=== PATIENT | male | born 1955 | race Hispanic/Latino ===

== ENCOUNTER → 2017-08-20 | Outpatient (CLI) | payer OTHER ==
[~2017-08-20] MED LIST: ASPI-1197 PO; CARV3.1262 PO; CLOP75TA32 PO; FURO20TA6 PO; Isosorbide Mono 30MG Tab Sr PO; LISI2.5T2 PO; LOSA25TA21 PO; REGADENOSON 0.4 MG/5 ML PF SYG IVP SCH; ROSU40 PO; SPIR25TA PO
== END | disposition home or self-care (01) ==
LOC: SHCH 09:47
PROVIDERS: ATTEND Internal Medicine Cardiovascular Disease
DX: I25.10 Atherosclerotic heart disease of native coronary artery without angina pectoris (principal); R06.00 Dyspnea, unspecified
CPT/HCPCS: 78452; 93017; 96374; A9500 ×2; J2785

== ENCOUNTER 2017-09-11 12:10 | Observation (INO) | payer OTHER ==
[~2017-09-11] VITALS: Ht 175.3 cm; Wt 77.8 kg
[~2017-09-11 12:10] MED LIST changes: -LOSA25TA21 PO; -REGADENOSON 0.4 MG/5 ML PF SYG IVP SCH
[2017-09-11] MEDS ORDERED: ASPIRIN 325 MG TABLET ONE (12:29)
[2017-09-11 12:42] LABS: BASOPHILS % (AUTO) 0.7 % (0.0-5.0); EOSINOPHILS % (AUTO) 3.7 % (0.0-8.0); HEMATOCRIT 41.6 % (42-54); LYMPHOCYTES % (AUTO) 25.6 % (21.0-51.0); MEAN CORPUSCULAR HEMOGLOBIN 29.2 pg (27.0-33.0); MEAN CORPUSCULAR HGB CONC 33.6 g/dL (32.0-36.0); MEAN CORPUSCULAR VOLUME 86.8 fL (79-99); MONOCYTES % (AUTO) 10.3 % (3.0-13.0); NEUTROPHILS % (AUTO) 59.7 % (40.0-77.0); NUCLEATED RED BLOOD CELLS 0.1 % (0.0-0.19); PLATELET COUNT (AUTO) 209 K/uL (130-400); RED BLOOD CELL COUNT(AUTO) 4.79 MIL/uL (4.50-6.20); RED CELL DISTRIBUTION WIDTH 14.5 % (11.0-15.5); WHITE BLOOD COUNT (AUTO) 5.5 K/uL (4.8-10.8)
[2017-09-11 13:05] LABS: B-TYPE NATRIURETIC PEPTIDE 87 pg/mL (0-100)
[2017-09-11 13:06] LABS: INR 0.96 (0.85-1.15); PARTIAL THROMBOPLASTIN TIME 27.1 SEC (26.3-35.5); PROTHROMBIN TIME 10.1 SEC (9.6-11.6)
[2017-09-11 14:32] LABS: CREATININE 0.9 mg/dL (0.5-1.5); POTASSIUM 3.6 mmol/L (3.5-5.1)
[2017-09-11 14:39] LABS: ALBUMIN 4.3 g/dL (3.5-5.0); BILIRUBIN,TOTAL 0.7 mg/dL (0.2-1.0); TOTAL PROTEIN, SERUM 7.3 g/dL (6.0-8.3)
[2017-09-11] MEDS ORDERED: NITROGLYCERIN 1GM/1 INCH PACKET TD ONE (16:15)
[2017-09-11 17:00] VITALS: BP 132/76
[2017-09-11] MEDS ORDERED: LOSA25TA21 PO (17:28)
[2017-09-11 17:48] LABS: CREATINE KINASE MB 1.5 ng/mL (0.5-3.6); CREATINE KINASE, TOTAL 150 U/L (21-232); MYOGLOBIN 44 ng/mL (10-92); TROPONIN I < 0.04 ng/mL (0.00-0.06)
[2017-09-11] MEDS: NITROGLYCERIN 1GM/1 INCH PACKET TD SCH ×2 (18:01→23:52)
[2017-09-11 21:43] VITALS: BP 96/59
[2017-09-11 23:51] LABS: CREATINE KINASE MB 1.3 ng/mL (0.5-3.6); CREATINE KINASE, TOTAL 120 U/L (21-232); MYOGLOBIN 43 ng/mL (10-92); TROPONIN I < 0.04 ng/mL (0.00-0.06)
[2017-09-12] VITALS (7 sets, daily range): BP systolic 96–125; BP diastolic 57–81
[2017-09-12 05:29] LABS: HEMATOCRIT 38.6 % (42-54); MEAN CORPUSCULAR HEMOGLOBIN 30.5 pg (27.0-33.0); MEAN CORPUSCULAR VOLUME 87.2 fL (79-99); NUCLEATED RED BLOOD CELLS 0.1 % (0.0-0.19); PLATELET COUNT (AUTO) 178 K/uL (130-400); RED BLOOD CELL COUNT(AUTO) 4.42 MIL/uL (4.50-6.20); RED CELL DISTRIBUTION WIDTH 14.5 % (11.0-15.5); WHITE BLOOD COUNT (AUTO) 5.4 K/uL (4.8-10.8)
[2017-09-12 06:01] LABS: CARBON DIOXIDE 27 mmol/L (21-32); CHLORIDE 103 mmol/L (101-111); CREATINE KINASE, TOTAL 98 U/L (21-232); CREATININE 0.9 mg/dL (0.5-1.5); GLOMERULAR FILTR. RATE CALC 91 mL/min (>60); GLUCOSE,RANDOM 92 mg/dL (70-105); MYOGLOBIN 51 ng/mL (10-92); POTASSIUM 3.7 mmol/L (3.5-5.1); SODIUM SERUM 138 mmol/L (136-145); TROPONIN I < 0.04 ng/mL (0.00-0.06); UREA NITROGEN, BLOOD 9 mg/dL (7-18)
[2017-09-12] MEDS: PANTOPRAZOLE SODIUM 40 MG TABLET.DR PO SCH (07:37)
[2017-09-12] MEDS: ASPIRIN 325MG EC TAB 325 MG TABLET.DR PO SCH (08:57)
[2017-09-12] MEDS: NITROGLYCERIN 1GM/1 INCH PACKET TD SCH ×2 (08:58→16:11)
[2017-09-13 00:29] VITALS: BP 108/60
[2017-09-13] MEDS: NITROGLYCERIN 1GM/1 INCH PACKET TD SCH ×2 (00:34→08:27)
[2017-09-13 03:50] VITALS: BP 109/74
[2017-09-13 07:44] VITALS: BP 116/67
[2017-09-13] MEDS: PANTOPRAZOLE SODIUM 40 MG TABLET.DR PO SCH (07:45)
[2017-09-13] MEDS: ASPIRIN 325MG EC TAB 325 MG TABLET.DR PO SCH (08:21)
[2017-09-13] MEDS ORDERED: NITROGLYCERIN 1GM/1 INCH PACKET TD SCH (09:24)
[2017-09-13 12:00] VITALS: BP 111/76
[2017-09-13 16:00] VITALS: BP 119/66
[2017-09-13] MEDS ORDERED: ATORVASTATIN CALCIUM 20 MG TABLET PO SCH (21:00)
[2017-09-13] MEDS ORDERED: CARVEDILOL 3.125 MG TABLET PO SCH (21:00)
[2017-09-13] MEDS ORDERED: LOSARTAN 50 MG TABLET PO SCH (21:00)
[2017-09-14] MEDS ORDERED: CLOPIDOGREL BISULFATE 75 MG TAB PO SCH (09:00)
== END 2017-09-13 19:10 | disposition home or self-care (01) ==
LOC: EDH 12:10 → 4BH 15:25
PROVIDERS: ADMIT Family Medicine; ATTEND Family Medicine
DX: I25.110 Atherosclerotic heart disease of native coronary artery with unstable angina pectoris (principal); I11.0 Hypertensive heart disease with heart failure; I50.22 Chronic systolic (congestive) heart failure; E78.5 Hyperlipidemia, unspecified; I21.9 Acute myocardial infarction, unspecified; I25.5 Ischemic cardiomyopathy; K21.9 Gastro-esophageal reflux disease without esophagitis; I25.2 Old myocardial infarction; Z87.891 Personal history of nicotine dependence; Z95.5 Presence of coronary angioplasty implant and graft
CPT/HCPCS: 36415 ×2; 71045; 80048; 80053; 82550 ×4; 82553 ×3; 83874 ×3; 83880; 84484 ×4; 85025; 85027; 85610; 85730; 93005; 99285; G0378 ×52

== ENCOUNTER 2018-04-22 20:08 | Inpatient (IN) | payer OTHER ==
[~2018-04-22] VITALS: Ht 175.3 cm; Wt 71.8 kg
[~2018-04-22 20:08] MED LIST changes: -FURO20TA6 PO; -Isosorbide Mono 30MG Tab Sr PO; -LISI2.5T2 PO; +LOSA25TA16 PO; -SPIR25TA PO
[2018-04-22] MEDS ORDERED: ASPIRIN 325 MG TABLET ONE (22:53)
[2018-04-22 23:25] LABS: BILIRUBIN,URINE Negative (NEGATIVE); COLOR,URINE Yellow (YELLOW); GLUCOSE, URINE (UA) Negative (NEGATIVE); KETONES,URINE 40 mg/dL (NEGATIVE); LEUKOCYTE ESTERASE ,URINE Negative (NEGATIVE); NITRATE,URINE Negative (NEGATIVE); OCCULT BLOOD,URINE Negative (NEGATIVE); PROTEIN,URINE Negative (NEGATIVE)
[2018-04-22 23:35] LABS: APPEARANCE,URINE CLEAR (CLEAR)
[2018-04-22 23:38] LABS: BASOPHILS % (AUTO) 0.4 % (0.0-5.0); EOSINOPHILS % (AUTO) 0.7 % (0.0-8.0); HEMATOCRIT 39.2 % (42-54); LYMPHOCYTES % (AUTO) 17.6 % (21.0-51.0); MEAN CORPUSCULAR HEMOGLOBIN 30.3 pg (27.0-33.0); MEAN CORPUSCULAR HGB CONC 34.2 g/dL (32.0-36.0); MEAN CORPUSCULAR VOLUME 88.8 fL (79-99); MONOCYTES % (AUTO) 14.3 % (3.0-13.0); PLATELET COUNT (AUTO) 179 K/uL (130-400); RED BLOOD CELL COUNT(AUTO) 4.42 MIL/uL (4.50-6.20); RED CELL DISTRIBUTION WIDTH 12.8 % (11.0-15.5); WHITE BLOOD COUNT (AUTO) 7.9 K/uL (4.8-10.8)
[2018-04-22 23:46] LABS: CREATININE 0.9 mg/dL (0.5-1.5); POTASSIUM 4.3 mmol/L (3.5-5.1)
[2018-04-22 23:50] LABS: ALBUMIN 3.8 g/dL (3.5-5.0); BILIRUBIN,TOTAL 1.5 mg/dL (0.2-1.0); TOTAL PROTEIN, SERUM 7.4 g/dL (6.0-8.3)
[2018-04-23 00:18] LABS: INR 1.03 (0.85-1.15); PARTIAL THROMBOPLASTIN TIME 32.2 SEC (26.3-35.5); PROTHROMBIN TIME 10.8 SEC (9.6-11.6)
[2018-04-23] MEDS ORDERED: NITROGLYCERIN 1GM/1 INCH PACKET TD PRN (15:45)
[2018-04-23] MEDS ORDERED: SODIUM CHLORIDE 0.9% 10 ML VIAL IVP PRN (15:45)
[2018-04-23 16:00] VITALS: BP 122/79
[2018-04-23] MEDS ORDERED: CARV6.2579 PO (17:16)
[2018-04-23] MEDS ORDERED: ACETAMINOPHEN 325 MG TAB ONE (17:19)
[2018-04-23 19:20] VITALS: BP 102/66
[2018-04-23] MEDS: ASPIRIN 325 MG TABLET PO SCH (20:56)
[2018-04-23 23:20] VITALS: BP 111/65
[2018-04-24] VITALS (11 sets, daily range): BP systolic 91–142; BP diastolic 61–85
[2018-04-24] MEDS: ACETAMINOPHEN 325 MG TAB PO PRN ×3 (00:26→20:53)
[2018-04-24 04:32] LABS: HEMATOCRIT 39.3 % (42-54); MEAN CORPUSCULAR HEMOGLOBIN 28.9 pg (27.0-33.0); MEAN CORPUSCULAR VOLUME 87.7 fL (79-99); NUCLEATED RED BLOOD CELLS 0.1 % (0.0-0.19); PLATELET COUNT (AUTO) 175 K/uL (130-400); RED BLOOD CELL COUNT(AUTO) 4.48 MIL/uL (4.50-6.20); RED CELL DISTRIBUTION WIDTH 12.9 % (11.0-15.5); WHITE BLOOD COUNT (AUTO) 7.1 K/uL (4.8-10.8)
[2018-04-24 04:47] LABS: CREATININE 0.8 mg/dL (0.5-1.5); POTASSIUM 3.7 mmol/L (3.5-5.1)
[2018-04-24] MEDS: ASPIRIN 325 MG TABLET PO SCH (08:29)
[2018-04-24] MEDS: IPRATROPIUM/ALBUTEROL SULFATE 3 ML SOLUTION IH SCH ×2 (14:55→18:40)
[2018-04-24] MEDS ORDERED: FUROSEMIDE 10 MG/ML 2ML VIAL IV SCH (16:30)
[2018-04-24] MEDS: CLOPIDOGREL BISULFATE 75 MG TAB PO SCH (17:32)
[2018-04-24] MEDS: SPIRONOLACTONE 25 MG TAB PO SCH (17:32)
[2018-04-24] MEDS ORDERED: SODIUM CHLORIDE 3% FOR INHALATION 4 ML/AMP VIAL.NEB IH ONE (18:38)
[2018-04-25] MEDS: IPRATROPIUM/ALBUTEROL SULFATE 3 ML SOLUTION IH SCH ×4 (00:58→18:39)
[2018-04-25 03:40] VITALS: BP 104/65
[2018-04-25 05:00] LABS: MEAN CORPUSCULAR HEMOGLOBIN 29.9 pg (27.0-33.0); MEAN CORPUSCULAR HGB CONC 34.1 g/dL (32.0-36.0); MEAN CORPUSCULAR VOLUME 87.9 fL (79-99); PLATELET COUNT (AUTO) 205 K/uL (130-400); RED BLOOD CELL COUNT(AUTO) 4.21 MIL/uL (4.50-6.20); RED CELL DISTRIBUTION WIDTH 12.9 % (11.0-15.5); WHITE BLOOD COUNT (AUTO) 6.2 K/uL (4.8-10.8)
[2018-04-25 05:07] LABS: CREATININE 0.7 mg/dL (0.5-1.5); POTASSIUM 3.5 mmol/L (3.5-5.1)
[2018-04-25 07:56] VITALS: BP 117/74
[2018-04-25] MEDS ORDERED: NITROGLYCERIN 1GM/1 INCH PACKET TD PRN (08:00)
[2018-04-25] MEDS: ASPIRIN 325 MG TABLET PO SCH (10:17)
[2018-04-25] MEDS: SPIRONOLACTONE 25 MG TAB PO SCH (10:17)
[2018-04-25] MEDS: FUROSEMIDE 20 MG TABLET PO SCH (10:17)
[2018-04-25] MEDS: ISOSORBIDE MONO 30MG TAB SR PO SCH (10:18)
[2018-04-25] MEDS: ACETAMINOPHEN-CODEINE 300/30MG TAB PO PRN ×3 (10:19→23:37)
[2018-04-25] MEDS: CLOPIDOGREL BISULFATE 75 MG TAB PO SCH (10:19)
[2018-04-25] MEDS: METOPROLOL TARTRATE 25 MG TAB PO SCH ×2 (10:19→23:37)
[2018-04-25] MEDS ORDERED: LACTULOSE 20 GM/30 ML UDCUP PO PRN ×2 (10:45→11:00)
[2018-04-25] MEDS: LEVOFLOXACIN 500 MG TABLET PO SCH (11:03)
[2018-04-25 11:19] VITALS: BP 98/58
[2018-04-25 16:17] VITALS: BP 107/61
[2018-04-25 19:15] VITALS: BP 101/61
[2018-04-25 23:05] VITALS: BP 115/65
[2018-04-26 03:15] VITALS: BP 105/58
[2018-04-26] MEDS: IPRATROPIUM/ALBUTEROL SULFATE 3 ML SOLUTION IH SCH ×4 (05:48→19:56)
[2018-04-26 08:00] VITALS: BP 111/72
[2018-04-26] MEDS: CLOPIDOGREL BISULFATE 75 MG TAB PO SCH (08:31)
[2018-04-26] MEDS: ASPIRIN 325 MG TABLET PO SCH (08:31)
[2018-04-26] MEDS: SPIRONOLACTONE 25 MG TAB PO SCH (08:31)
[2018-04-26] MEDS: ACETAMINOPHEN-CODEINE 300/30MG TAB PO PRN ×2 (08:31→20:15)
[2018-04-26] MEDS: LEVOFLOXACIN 500 MG TABLET PO SCH (08:32)
[2018-04-26] MEDS: FUROSEMIDE 20 MG TABLET PO SCH (08:32)
[2018-04-26] MEDS: DOCUSATE SODIUM 100 MG CAP PO SCH (08:32)
[2018-04-26] MEDS: ISOSORBIDE MONO 30MG TAB SR PO SCH (08:32)
[2018-04-26] MEDS: METOPROLOL TARTRATE 25 MG TAB PO SCH ×2 (08:32→20:12)
[2018-04-26] MEDS ORDERED: SODIUM CHLORIDE 0.9% 500ML 500 ML IV SCH (09:26)
[2018-04-26 10:03] LABS: CREATININE 0.7 mg/dL (0.5-1.5); POTASSIUM 4.3 mmol/L (3.5-5.1)
[2018-04-26 10:07] LABS: INR 0.98 (0.85-1.15); PARTIAL THROMBOPLASTIN TIME 33.2 SEC (26.3-35.5); PROTHROMBIN TIME 10.3 SEC (9.6-11.6)
[2018-04-26 10:08] LABS: HEMATOCRIT 36.6 % (42-54); MEAN CORPUSCULAR HEMOGLOBIN 28.8 pg (27.0-33.0); MEAN CORPUSCULAR HGB CONC 32.8 g/dL (32.0-36.0); MEAN CORPUSCULAR VOLUME 87.7 fL (79-99); NUCLEATED RED BLOOD CELLS 0.1 % (0.0-0.19); PLATELET COUNT (AUTO) 245 K/uL (130-400); RED BLOOD CELL COUNT(AUTO) 4.17 MIL/uL (4.50-6.20); WHITE BLOOD COUNT (AUTO) 6.4 K/uL (4.8-10.8)
[2018-04-26 11:46] VITALS: BP 91/60
[2018-04-26 16:00] VITALS: BP 93/70
[2018-04-26 20:00] VITALS: BP 136/89
[2018-04-27] VITALS (10 sets, daily range): BP systolic 98–132; BP diastolic 61–85
[2018-04-27] MEDS: IPRATROPIUM/ALBUTEROL SULFATE 3 ML SOLUTION IH SCH ×3 (00:10→11:22)
[2018-04-27] MEDS ORDERED: HEPARIN SODIUM 1000UNIT/ML 10ML VIAL ONE (07:26)
[2018-04-27] MEDS ORDERED: IOHEXOL-350 50ML VIAL IV ONE (07:27)
[2018-04-27] MEDS ORDERED: IOHEXOL-350 75 ML VIAL IV ONE (07:27)
[2018-04-27] MEDS ORDERED: IOHEXOL 350 MG/ML 100ML INFUS..BTL IV ONE (07:27)
[2018-04-27] MEDS ORDERED: NITROGLYCERIN 5 MG/ML 10 ML VIAL IV ONE (07:27)
[2018-04-27] MEDS ORDERED: LIDOCAINE HCL 2% 20ML ONE ×2 (07:48→07:49)
[2018-04-27] MEDS: ASPIRIN 325 MG TABLET PO SCH (09:49)
[2018-04-27] MEDS: METOPROLOL TARTRATE 25 MG TAB PO SCH (09:49)
[2018-04-27] MEDS: ISOSORBIDE MONO 30MG TAB SR PO SCH (09:50)
[2018-04-27] MEDS: CLOPIDOGREL BISULFATE 75 MG TAB PO SCH (09:50)
[2018-04-27] MEDS: LEVOFLOXACIN 500 MG TABLET PO SCH (09:50)
[2018-04-27] MEDS: DOCUSATE SODIUM 100 MG CAP PO SCH (09:50)
[2018-04-27] MEDS: SPIRONOLACTONE 25 MG TAB PO SCH (09:50)
[2018-04-27] MEDS: FUROSEMIDE 20 MG TABLET PO SCH (09:51)
[2018-04-27] MEDS: ACETAMINOPHEN-CODEINE 300/30MG TAB PO PRN (12:42)
== END 2018-04-27 15:00 | disposition home or self-care (01) | DRG 287 ==
LOC: EDH 20:08 → EDHIP 20:09 → OBSVTOIN 20:09 → 4BH 04-23 14:58 → 2AH 04-27 08:24
PROVIDERS: ADMIT Family Medicine; ATTEND Family Medicine
PROC: 4A023N7 Measurement of Cardiac Sampling and Pressure, Left Heart, Percutaneous Approach (ICD-10-PCS; principal; 2018-04-27)
PROC: B2111ZZ Fluoroscopy of Multiple Coronary Arteries using Low Osmolar Contrast (ICD-10-PCS; 2018-04-27)
PROC: B2151ZZ Fluoroscopy of Left Heart using Low Osmolar Contrast (ICD-10-PCS; 2018-04-27)
DX: I25.110 Atherosclerotic heart disease of native coronary artery with unstable angina pectoris (principal); J20.9 Acute bronchitis, unspecified; I25.2 Old myocardial infarction; I25.5 Ischemic cardiomyopathy; I10 Essential (primary) hypertension; E78.5 Hyperlipidemia, unspecified; Z95.5 Presence of coronary angioplasty implant and graft; Z95.810 Presence of automatic (implantable) cardiac defibrillator
CPT/HCPCS: 36415; 71045; 71250; 80048; 80053; 81003; 83690; 83880; 84484; 85025; 85027; 85610; 85730; 87040; 87071; 87077; 87186; 87205; 87804; 93005; 93458; 94640; 94664; C1760; C1894; G0378; J1644; J1940; J3490; Q9967

== ENCOUNTER → 2018-12-05 | Outpatient (CLI) | payer OTHER ==
[~2018-12-05] MED LIST changes: -CARV3.1262 PO; +CARV6.2579 PO; -CLOP75TA32 PO; -LOSA25TA16 PO; +LOSA25TA41 PO
== END | disposition home or self-care (01) ==
LOC: SHCH 10:56
PROVIDERS: ATTEND Internal Medicine Cardiovascular Disease
DX: I35.1 Nonrheumatic aortic (valve) insufficiency (principal); I25.5 Ischemic cardiomyopathy
CPT/HCPCS: 93306

== ENCOUNTER → 2019-04-13 | Outpatient (CLI) | payer OTHER ==
[~2019-04-13] VITALS: Ht 175.3 cm; Wt 80.7 kg
[~2019-04-13] MED LIST changes: +REGADENOSON 0.4 MG/5 ML PF SYG IVP SCH
== END | disposition home or self-care (01) ==
LOC: SHCH 07:58
PROVIDERS: ATTEND Internal Medicine Cardiovascular Disease
DX: I21.19 ST elevation (STEMI) myocardial infarction involving other coronary artery of inferior wall (principal); I25.10 Atherosclerotic heart disease of native coronary artery without angina pectoris; I47.1 Supraventricular tachycardia
CPT/HCPCS: 78452; 93017; 96374; A9500 ×2; J2785

== ENCOUNTER 2019-06-27 05:43 | Day surgery (SDC) | payer OTHER ==
[2019-06-20 12:09] LABS: BASOPHILS % (AUTO) 0.7 % (0.0-5.0); EOSINOPHILS % (AUTO) 4.6 % (0.0-8.0); HEMATOCRIT 43.7 % (42-54); LYMPHOCYTES % (AUTO) 33.6 % (21.0-51.0); MEAN CORPUSCULAR HEMOGLOBIN 29.3 pg (27.0-33.0); MEAN CORPUSCULAR HGB CONC 32.3 g/dL (32.0-36.0); MEAN CORPUSCULAR VOLUME 90.9 fL (79-99); MONOCYTES % (AUTO) 9.5 % (3.0-13.0); NEUTROPHILS % (AUTO) 51.4 % (40.0-77.0); PLATELET COUNT (AUTO) 223 K/uL (130-400); RED BLOOD CELL COUNT(AUTO) 4.81 MIL/uL (4.50-6.20); RED CELL DISTRIBUTION WIDTH 13.2 % (11.0-15.5); WHITE BLOOD COUNT (AUTO) 5.5 K/uL (4.8-10.8)
[2019-06-20 12:11] LABS: APPEARANCE,URINE Clear (CLEAR); BILIRUBIN,URINE Negative (NEGATIVE); COLOR,URINE Yellow (YELLOW); GLUCOSE, URINE (UA) Negative (NEGATIVE); KETONES,URINE Negative (NEGATIVE); LEUKOCYTE ESTERASE ,URINE Negative (NEGATIVE); NITRATE,URINE Negative (NEGATIVE); OCCULT BLOOD,URINE Negative (NEGATIVE); PROTEIN,URINE Negative (NEGATIVE)
[2019-06-20 12:17] LABS: CREATININE 0.8 mg/dL (0.5-1.5); POTASSIUM 4.6 mmol/L (3.5-5.1)
[2019-06-20 12:18] LABS: INR 0.99 (0.85-1.15); PARTIAL THROMBOPLASTIN TIME 27.3 SEC (26.3-35.5); PROTHROMBIN TIME 10.4 SEC (9.6-11.6)
[2019-06-20 12:30] VITALS: BP 105/65
[~2019-06-27] VITALS: Ht 172.7 cm; Wt 81.0 kg
[2019-06-27] VITALS (10 sets, daily range): BP systolic 91–111; BP diastolic 55–71
[~2019-06-27 05:43] MED LIST changes: -CARV6.2579 PO; +METO-391 PO; -REGADENOSON 0.4 MG/5 ML PF SYG IVP SCH; +ROSU10TA28 PO; -ROSU40 PO; +SODIUM CHLORIDE 0.9% 1000ML 1,000 ML IV SCH
[2019-06-27] MEDS ORDERED: SODIUM CHLORIDE 0.9% 1000ML 1,000 ML IV ONE (06:14)
[2019-06-27] MEDS ORDERED: HEPARIN SODIUM 1000UNIT/ML 10ML VIAL ONE (07:06)
[2019-06-27] MEDS ORDERED: IOHEXOL-350 50ML VIAL IV ONE (07:06)
[2019-06-27] MEDS ORDERED: NITROGLYCERIN 2 MG/VIAL VIAL IV ONE (07:06)
[2019-06-27] MEDS ORDERED: IOHEXOL 350 MG/ML 100ML INFUS..BTL IV ONE (07:06)
[2019-06-27] MEDS ORDERED: LIDOCAINE HCL 2% 20ML ONE (07:07)
--- NOTE | 2019-06-27 07:18 | NUR ---
TRANSFER TO [facility] PT TAKEN TO [facility] VIA BED BY RANDA DAVIS RN FOR HEART CATH. PT IN NO PAIN AND URINATED BEFORE TRANSFER
[2019-06-27] MEDS ORDERED: MIDAZOLAM HCL 1 MG/ML 2ML VIAL ONE (07:27)
--- NOTE | 2019-06-27 10:55 | NUR ---
ACTIVITY PT HOB ELEVATED TO 30 DEGREES. NO S/S OF BLEEDING TO RT GROIN SITE. PT IN NO DISTRESS. WILL CONTINUE TO MONITOR
--- NOTE | 2019-06-27 12:15 | NUR ---
DIET PT EATING AT BEDSIDE IN NO DISTRESS. CALL LIGHT WITH IN REACH
--- NOTE | 2019-06-27 12:50 | NUR ---
DISCHARGE PT TAKEN OUT VIA W/C IN NO DISTRESS. DAUGHTER HERE FOR PT TO TAKE HIM HOME.
== END 2019-06-27 12:50 | disposition home or self-care (01) ==
LOC: DAH 05:43
PROVIDERS: ATTEND Internal Medicine Cardiovascular Disease
DX: I25.10 Atherosclerotic heart disease of native coronary artery without angina pectoris (principal); I34.0 Nonrheumatic mitral (valve) insufficiency; E78.5 Hyperlipidemia, unspecified; I10 Essential (primary) hypertension; K21.9 Gastro-esophageal reflux disease without esophagitis; Z82.49 Family history of ischemic heart disease and other diseases of the circulatory system; I25.2 Old myocardial infarction; I25.5 Ischemic cardiomyopathy; Z79.01 Long term (current) use of anticoagulants; Z95.810 Presence of automatic (implantable) cardiac defibrillator; I47.1 Supraventricular tachycardia
CPT/HCPCS: 36415; 71045; 80048; 81003; 85025; 85610; 85730; 93005; 93458; 99156; 99157; A4606; C1760; C1894; J1644; J2250; J3490; J7030; Q9967

== ENCOUNTER 2019-10-11 05:12 | Day surgery (SDC) | payer OTHER ==
[~2019-10-11] VITALS: Ht 172.7 cm; Wt 79.4 kg
[2019-10-11] VITALS (9 sets, daily range): BP systolic 100–128; BP diastolic 64–77
[~2019-10-11 05:12] MED LIST changes: -ASPI-1197 PO; +ASPI-556 PO; -SODIUM CHLORIDE 0.9% 1000ML 1,000 ML IV SCH
[2019-10-11 05:57] LABS: BASOPHILS % (AUTO) 0.6 % (0.0-5.0); EOSINOPHILS % (AUTO) 4.1 % (0.0-8.0); HEMATOCRIT 42.7 % (42-54); LYMPHOCYTES % (AUTO) 37.3 % (21.0-51.0); MEAN CORPUSCULAR HEMOGLOBIN 28.3 pg (27.0-33.0); MEAN CORPUSCULAR HGB CONC 31.9 g/dL (32.0-36.0); MONOCYTES % (AUTO) 8.8 % (3.0-13.0); PLATELET COUNT (AUTO) 193 K/uL (130-400); RED CELL DISTRIBUTION WIDTH 13.3 % (11.0-15.5); WHITE BLOOD COUNT (AUTO) 4.9 K/uL (4.8-10.8)
[2019-10-11 06:06] LABS: INR 0.92 (0.85-1.15); PARTIAL THROMBOPLASTIN TIME 27.6 SEC (26.3-35.5)
[2019-10-11 06:10] LABS: CREATININE 0.7 mg/dL (0.5-1.5); POTASSIUM 3.9 mmol/L (3.5-5.1)
[2019-10-11] MEDS ORDERED: SODIUM CHLORIDE 0.9% 1000ML 1,000 ML IV ONE (06:12)
[2019-10-11] MEDS ORDERED: HEPARIN SODIUM 1000UNIT/ML 10ML VIAL ONE (08:07)
[2019-10-11] MEDS ORDERED: LIDOCAINE HCL 2% 20ML ONE (08:08)
[2019-10-11] MEDS ORDERED: MIDAZOLAM HCL 1 MG/ML 2ML VIAL ONE ×2 (08:11→09:30)
[2019-10-11] MEDS ORDERED: MEPERIDINE-PF 50 MG/ML SYG ONE (08:11)
[2019-10-11] MEDS ORDERED: ISOPROTERENOL HCL 0.2 MG/ML AMP/VIAL/BAG ONE (08:14)
== END 2019-10-11 13:39 | disposition home or self-care (01) ==
LOC: CLH 05:12 → DAH 05:12
PROVIDERS: ATTEND Internal Medicine Cardiovascular Disease
DX: I47.1 Supraventricular tachycardia (principal); I25.2 Old myocardial infarction; E78.5 Hyperlipidemia, unspecified; I10 Essential (primary) hypertension; K21.9 Gastro-esophageal reflux disease without esophagitis; I25.5 Ischemic cardiomyopathy; Z79.899 Other long term (current) drug therapy; Z95.810 Presence of automatic (implantable) cardiac defibrillator; Z79.01 Long term (current) use of anticoagulants; Z72.89 Other problems related to lifestyle; Z87.891 Personal history of nicotine dependence; Z82.49 Family history of ischemic heart disease and other diseases of the circulatory system; Z83.3 Family history of diabetes mellitus
CPT/HCPCS: 36415; 80048; 85025; 85610; 85730; 93620; 93621; 93623; A4215; A4216; A4221; A4222; A4223 ×3; A4606; A4649 ×2; A4663; C1730 ×4; C1894 ×5; J1644 ×2; J2175; J2250 ×2; J3490 ×2; J7030; 93287; 99156; 99157

== ENCOUNTER → 2023-02-11 | Outpatient (CLI) | payer OTHER | END | disposition home or self-care (01) | LOC: RAH 15:21 | PROVIDERS: ATTEND Internal Medicine Cardiovascular Disease | DX: I67.9 Cerebrovascular disease, unspecified (principal) | CPT/HCPCS: 70450 ==

== ENCOUNTER → 2023-12-28 | Outpatient (CLI) | payer OTHER ==
[~2023-12-28] MED LIST changes: +REGADENOSON 0.4 MG/5 ML PF SYG IVP ONE; -ROSU10TA28 PO; +ROSU10TA72 PO
== END | disposition home or self-care (01) ==
LOC: SHCH 07:36
PROVIDERS: ATTEND Internal Medicine Cardiovascular Disease
DX: I25.10 Atherosclerotic heart disease of native coronary artery without angina pectoris (principal)
CPT/HCPCS: 78452; 93017; J2785; A9500 ×2

== ENCOUNTER → 2024-03-16 | Outpatient (CLI) | payer OTHER ==
[~2024-03-16] MED LIST changes: -REGADENOSON 0.4 MG/5 ML PF SYG IVP ONE
--- NOTE | 2024-03-17 09:00 | HMCSR ---
APPROVED REPORT EXAM: Two-dimensional and M-mode echocardiogram with Doppler and color Doppler. INDICATION ICD: I25.5 Ischemic cardiomyopathy 2D Dimensions RVDd4.1 cmLVEF(%)39.4 (>50%)LVED Vol(simp.)204.0 mL IVSd0.7 (0.7-1.1cm)FS(%)19 %LVES Vol(simp.)125.0 mL LVDd5.9 (3.8-5.6cm)LA (2D)4.5 (1.6-4.0cm)LVEF(%, simp.)39 % PWd1.0 (0.7-1.1cm)Ao Root(2D)2.9 (2.0-3.7cm)LA ESV INDEX (BP)45.02 mL/m2 LVDs4.8 (2.5-4.0cm)LVOT diam2.3 (1.8-2.4cm) IVC diam1.8 cm M-Mode Dimensions EPSS2.8 cm Aortic Valve AoV Vmax1.4 m/Jerel Peak GR8.2 mmHgLVOT Vmax1.0 m/s AoV VTI0.3 mAo Mean GR4.4 mmHgLVOT VTI0.22 m EULALIA (VMAX)2.8 cm2Al P1/2T675 msAVA (VTI) 2.8 cm2 Mitral Valve MV E Vmax88.2 cm/sDECEL Ctmm498 ms MV A Vmax60.5 cm/sP 1/2 T45 ms E/A ratio1.5MVA (PHT)4.9 cm2 MR Max PG73 mmHg TDI E/E' Gkuowr53.8E/E' Tojhrxd85.0 Pulmonary Valve PV Vmax0.6 m/sPV VTI0.16 mPV Mean GR1 mmHg PV Peak GR1.6 mmHg Tricuspid Valve TR Vmax2.9 m/sRAP (EST) 8 ulQbRDFX04.4 mmHg TR Peak GR34.4 mmHg Left Ventricle The left ventricle is moderately dilated. There is normal left ventricular wall thickness. LVEF is 35 -40%. Grade 2 diastolic dysfunction. Right Ventricle The right ventricle is borderline dilated. The right ventricular systolic function is normal. Atria The left atrium is moderately dilated. The right atrium is moderately dilated. Aortic Valve Aortic valve is trileaflet. Aortic valve leaflets are sclerotic but open well. Trace to mild aortic r egurgitation. There is no aortic valvular stenosis. Mitral Valve Mitral valve leaflets are mildly sclerotic but open well. Mitral regurgitation is mild to moderate. T here is no mitral valve stenosis. Tricuspid Valve The tricuspid valve leaflets appear normal. There is mild tricuspid regurgitation. Right ventricular systolic pressure is estimated at 40-50 mmHg. Pulmonic Valve The pulmonic valve leaflets are thin and pliable; valve motion is normal. There is trace pulmonic dutch vular regurgitation. Great Vessels The aortic root is normal in size. IVC is dilated and collapses >50% with inspiration. Pericardium No pericardial effusion. Conclusion LVEF is 35-40%. Grade 2 diastolic dysfunction. Trace to mild aortic regurgitation. Mitral regurgitation is mild to moderate. There is mild tricuspid regurgitation. Right ventricular systolic pressure is estimated at 40-50 mmHg.
== END | disposition home or self-care (01) ==
LOC: SHCH 13:33
PROVIDERS: ATTEND Internal Medicine Cardiovascular Disease
DX: I08.3 Combined rheumatic disorders of mitral, aortic and tricuspid valves (principal); I25.5 Ischemic cardiomyopathy
CPT/HCPCS: 93306

== ENCOUNTER 2024-06-27 06:30 | Day surgery (SDC) | payer OTHER ==
[~2024-06-27] VITALS: Ht 175.3 cm; Wt 79.4 kg
[2024-06-27] VITALS (10 sets, daily range): BP systolic 93–122; BP diastolic 53–72; PULSE 60–86; RESP 15–18; TEMP 97–97.8
[~2024-06-27 06:30] MED LIST changes: +AMIT10TA6 PO; +DRON400T7 PO; -LOSA25TA41 PO; -METO-391 PO; +METO-409 PO; +OMEP20CA12 PO; +PRAV10TA39 PO; -ROSU10TA72 PO; +SACU1TAB PO
[2024-06-27] MEDS: 0.9%NACL 1000ML 1,000 ML IV ONE (07:49)
[2024-06-27] MEDS ORDERED: proPOFol 10 MG/ML 20ML VIAL IV ONE (08:56)
== END 2024-06-27 13:19 | disposition home or self-care (01) ==
LOC: ENDO 06:30 → DAH 06:30 → ENDO 13:19
PROVIDERS: ATTEND Internal Medicine Gastroenterology
DX: K21.9 Gastro-esophageal reflux disease without esophagitis (principal); K29.50 Unspecified chronic gastritis without bleeding; K22.9 Disease of esophagus, unspecified; K31.A11 Gastric intestinal metaplasia without dysplasia, involving the antrum; K57.30 Diverticulosis of large intestine without perforation or abscess without bleeding; I11.0 Hypertensive heart disease with heart failure; I50.9 Heart failure, unspecified; I25.10 Atherosclerotic heart disease of native coronary artery without angina pectoris; E78.5 Hyperlipidemia, unspecified; F41.9 Anxiety disorder, unspecified; F32.A Depression, unspecified; I25.2 Old myocardial infarction; Z95.0 Presence of cardiac pacemaker; Z79.899 Other long term (current) drug therapy
CPT/HCPCS: 43239; J7030; J2704; A4620; A4215 ×2; A4223; A4222; A4221; A4663; A4606; J3490

== ENCOUNTER → 2024-08-23 | Outpatient (CLI) | payer OTHER ==
[2024-08-23 12:22] LABS: CREATININE 0.8 mg/dL (0.5-1.3); POTASSIUM 4.1 mmol/L (3.5-5.1)
== END | disposition home or self-care (01) ==
LOC: LAB 09:02
PROVIDERS: ATTEND Internal Medicine Cardiovascular Disease
DX: I11.0 Hypertensive heart disease with heart failure (principal); I50.9 Heart failure, unspecified
CPT/HCPCS: 36415; 80048

== ENCOUNTER → 2024-08-30 | Outpatient (CLI) | payer OTHER ==
[2024-08-30 12:14] LABS: CREATININE 0.7 mg/dL (0.5-1.3); POTASSIUM 4.1 mmol/L (3.5-5.1)
== END | disposition home or self-care (01) ==
LOC: LAB 08:48
PROVIDERS: ATTEND Internal Medicine Cardiovascular Disease
DX: I11.0 Hypertensive heart disease with heart failure (principal); I50.22 Chronic systolic (congestive) heart failure
CPT/HCPCS: 36415; 80048